=== PATIENT | male | born 1950 | race Caucasian/White ===

== ENCOUNTER 2022-10-14 09:56 | Outpatient (CLI) | payer OTHER | END 2022-10-14 10:27 | disposition home or self-care (01) | LOC: RAD 09:56 | PROVIDERS: ATTEND Internal Medicine | DX: I11.9 Hypertensive heart disease without heart failure (principal) ==

== ENCOUNTER → 2022-12-17 11:38 | Outpatient (CLI) | payer OTHER ==
[2022-12-17 13:20] LABS: CREATININE SERUM 0.73 mg/dL (0.70-1.30)
== END | disposition home or self-care (01) ==
LOC: LAB 11:38
DX: R10.30 Lower abdominal pain, unspecified (principal)

== ENCOUNTER 2022-12-23 07:15 | Outpatient (CLI) | payer OTHER | END 2022-12-23 07:28 | disposition home or self-care (01) | LOC: TOM 07:15 | PROVIDERS: ATTEND Internal Medicine | DX: R10.30 Lower abdominal pain, unspecified (principal); K57.92 Diverticulitis of intestine, part unspecified, without perforation or abscess without bleeding; J44.9 Chronic obstructive pulmonary disease, unspecified; R09.02 Hypoxemia; R91.8 Other nonspecific abnormal finding of lung field ==

== ENCOUNTER → 2023-01-28 | Day surgery (SDC) | payer OTHER | END | disposition home or self-care (01) | LOC: ADM 01-22 09:15 → AMB-ENDOS 09:02 | PROVIDERS: ATTEND Internal Medicine Gastroenterology | DX: K94.23 Gastrostomy malfunction (principal); R13.14 Dysphagia, pharyngoesophageal phase; Z20.822 Contact with and (suspected) exposure to COVID-19 ==

== ENCOUNTER 2023-08-10 12:34 | Inpatient (IN) | payer OTHER ==
[~2023-08-10] VITALS: Ht 167.6 cm; Wt 56.7 kg
--- NOTE | 2023-08-10 12:56 | NUR ---
SE RECIBE PTE EN AMBULANCIA JUNTO A FAMILIAR DONDE PARAMEDICOS REFIEREN QUE PACIENTE PRESENTA FIEBRE, DIFICULTAD RESPIARATORIA POR NEUMONIA Y ABDOMINAL PAIN. TEMPERATURA AL MOMENTO DE TRIAGE 102.7 DONDE SE LE ALLYSSA TYLENOL POR EL TUBO DE GASTROSTOMIA QUE PRESENTA EL MISMO Y BOLSA CON HIELO. SE COLOCA CANULA NASAL A [address] ORDEN DE [address] FARIAS LA CUAL TOLERA.
[2023-08-10] MEDS ORDERED: 0.9 % SODIUM CHLORIDE 1,000 ML IV STA (13:13)
[2023-08-10] MEDS ORDERED: LEVALBUTEROL HCL 1.25 MG/3 ML SOLUTION IH STA (13:14)
[2023-08-10] MEDS ORDERED: IPRATROPIUM/ALBUTEROL SULFATE 3 ML AMPUL.NEB IH STA (13:17)
[2023-08-10] MEDS ORDERED: ACETAMINOPHEN 500 MG GEL..CAP PO STA (13:19)
--- NOTE | 2023-08-10 13:47 | NUR ---
SE EDUCA A PTE OSBRE TX A RECIBIR EN EL AREA EL MISMO REFIERE ENTENDER. SE CANALIZA PTE Y SE COLOCA IVFLUID. SE LLAMA A TERAPIA FALU COLOCA LAS MISMAS Y REALIZA LAB. SE EDUCA SOBRE LANTIGUA Y EL MISMO REFIERE NO DESEARLO. SE REALIZAN MUESTRAS Y SE ENVIAN DE FORMA INMEDIATA. SE REALIZA EKG Y SE PRESENTA A DR FARIAS SE TRACE PTE EN ESPERA DE ESTUDIO.
[2023-08-10 13:53] LABS: PH,URINE 6.5 (5.0-8.0); URINE APPEARANCE Clear; URINE BILIRRUBIN Negative (NEGATIVE); URINE BLOOD Negative; URINE COLOR Yellow; URINE GLUCOSE Negative (NEGATIVE); URINE LEUKOCYTE Negative; URINE NITRATE Negative; URINE PROTEIN Trace (NEGATIVE)
[2023-08-10 13:54] LABS: URINE BACTERIA 20.1 uL (0.0-1933); URINE EPITHELIAL CELLS 2.6 uL (0.0-38.8); URINE RBC 15.4 uL (0.0-20.8); URINE WBC 2.6 uL (0.0-23.2)
[2023-08-10 13:55] LABS: HEMATOCRIT 34.7 % (39.0-48.0); HEMOGLOBIN 12.1 g/dL (13-16.00); MEAN CELL VOLUME 85.9 fL (80.0-100.00); MEAN CORPUSCULAR HEMOGLOBIN 30.1 pg (27.00-32.0); RED BLOOD COUNT 4.03 M/uL (4.00-6.00); RED CELL DISTRIBUTION WIDTH 13.4 % (11.5-14.5)
[2023-08-10 13:56] LABS: PLATELET COUNT 90 K/uL (150-450)
[2023-08-10 14:00] LABS: ABG pCO2 30.1 mmHg (35-45)
[2023-08-10 14:01] LABS: ABG PO2 75.8 mmHg (80-100); BASE EXCESS 0.9 mmol/l; SaO2 96.3 %; Tco2 23.9 mmol/l
[2023-08-10 14:02] LABS: allen test SATISFACTORY; o2 32 %; puncture site RADIAL LEFT
[2023-08-10 14:40] LABS: ALBUMIN 2.8 gm/dL (3.4-5.0); BILIRUBIN TOTAL 0.53 mg/dL (0.3-1.2); BILIRUBIN,CONJUGATED 0.18 mg/dL (0.0-0.2); BILIRUBIN,UNCONJUGATED 0.35 mg/dL (0.0-0.6); CALCIUM 8.1 mg/dL (8.5-10.1); CREATININE SERUM 0.71 mg/dL (0.70-1.30); GFR 109.68; POTASSIUM 4.07 mEq/L (3.5-5.1); TOTAL PROTEIN 5.8 gm/dL (6.4-8.2)
--- NOTE | 2023-08-10 15:26 | NUR ---
SE RCIBE PACIENTE ALERTA Y ORIENTADO X3 EN COMPANIA DE FAMILIAR EL CUAL AL MOMENTO SE ENCUENTRA EN MARIAH EN POSICION SEMI SENTADA. AL MOMENTO PTE SE ENCUENTRA CON CANULA NASAL Y CON IVF BAJANDO POR ANGIO #20 EN BRAZO BRIDGETTE. AL MOMENTO PENDIENTE RESULTADOS DE CT Y CONSULTA.
[2023-08-10] MEDS ORDERED: LEVALBUTEROL HCL 1.25 MG/3 ML SOLUTION IH SCH (18:19)
[2023-08-10] MEDS ORDERED: IPRATROPIUM BROMIDE 0.5 MG/2.5 ML AMPUL.NEB IH SCH (18:19)
[2023-08-10] MEDS ORDERED: DEXAMETHASONE SODIUM PHOSPHATE 4 MG/ML VIAL IV SCH (18:21)
[2023-08-10] MEDS ORDERED: AZITHROMYCIN 500 MG in DEXTROSE 5 % IN WATER 250 ML IV SCH (18:22)
[2023-08-10] MEDS ORDERED: CEFTRIAXONE SODIUM 2,000 MG in 0.9 % SODIUM CHLORIDE 100 ML IV SCH (18:22)
[2023-08-10] MEDS ORDERED: 0.9 % SODIUM CHLORIDE 1,000 ML IV SCH (18:30)
[2023-08-10] MEDS ORDERED: ACETAMINOPHEN 500 MG GEL..CAP PO PRN (18:30)
[2023-08-10] MEDS ORDERED: ONDANSETRON HCL 4 MG in 0.9 % SODIUM CHLORIDE 50 ML IV PRN (18:30)
[2023-08-10 21:06] LABS: FERRITIN 393.8 NG/ML (26-388)
[2023-08-10 21:10] LABS: C-REACTIVE PROTEIN 8.11 MG/DL (0.00-0.29)
[2023-08-10 21:31] LABS: D DIMER 8.4 MG/L; INR 1.3; PARTIAL THROMBOPLASTIN TIME 32.3 SECONDS (22.0-34.0); PROTHROMBIN TIME 13.4 SECONDS (9.0-11.5)
[2023-08-11] MEDS ORDERED: AMLODIPINE BESYLATE 5 MG TABLET PO SCH (09:00)
[2023-08-11] MEDS ORDERED: FAMOTIDINE/PF 20 MG in 0.9 % SODIUM CHLORIDE 8 ML IV PUSH SCH (09:00)
[2023-08-11] MEDS ORDERED: ENOXAPARIN SODIUM 40 MG/0.4 ML SYRINGE SUBCUTANEO SCH (09:00)
[2023-08-11] MEDS ORDERED: REMDESIVIR 100 MG VIAL IV NR ×2 (09:30→10:15)
[2023-08-11] MEDS ORDERED: PREGABALIN 100 MG CAPSULE PO SCH (11:44)
[2023-08-11] MEDS ORDERED: CLOPIDOGREL BISULFATE 75 MG TABLET PO SCH (11:44)
[2023-08-11] MEDS ORDERED: FAMOTIDINE20 MG (15:38)
[2023-08-11] MEDS ORDERED: PREGABALIN200 MG (15:38)
[2023-08-11] MEDS ORDERED: ALENDRONATE SOD35 MG (15:38)
[2023-08-11] MEDS ORDERED: FLUTICASONE-SA1 EAC3 (15:38)
[2023-08-11] MEDS ORDERED: TRAZODONE HCL50 MG (15:38)
[2023-08-11] MEDS ORDERED: FLONASE16 GM (15:38)
[2023-08-11] MEDS ORDERED: CLOPIDOGREL BIS75 MG (15:38)
[2023-08-11] MEDS ORDERED: TRAZODONE HCL 50 MG TABLET PO SCH (21:00)
[2023-08-12 07:50] LABS: HEMATOCRIT 35.6 % (39.0-48.0); HEMOGLOBIN 12.4 g/dL (13-16.00); MEAN CELL VOLUME 87.4 fL (80.0-100.00); MEAN CORPUSCULAR HEMOGLOBIN 30.5 pg (27.00-32.0); MEAN CORPUSCULAR HGB CONC 34.9 g/dl (32.0-36.0); RED BLOOD COUNT 4.07 M/uL (4.00-6.00); RED CELL DISTRIBUTION WIDTH 13.7 % (11.5-14.5)
[2023-08-12 07:55] LABS: PLATELET COUNT 98 K/uL (150-450)
[2023-08-12 08:06] LABS: ALBUMIN 2.4 gm/dL (3.4-5.0); BILIRUBIN TOTAL 0.5 mg/dL (0.3-1.2); CALCIUM 8.1 mg/dL (8.5-10.1); CREATININE SERUM 0.63 mg/dL (0.70-1.30); GFR 125.9; GLOBULINA 3.5 G/DL (2.4-3.5); POTASSIUM 4.46 mEq/L (3.5-5.1); TOTAL PROTEIN 5.9 gm/dL (6.4-8.2)
[2023-08-12 08:15] LABS: MYCOPLASMA PNEUMONIAE IGM NON REACTIVE (NO REACTIVE)
[2023-08-12 08:18] LABS: FERRITIN 377.6 NG/ML (26-388)
[2023-08-12 08:53] LABS: C-REACTIVE PROTEIN 17.5 MG/DL (0.00-0.29)
[2023-08-12 08:54] LABS: PHOSPHOROUS 1.5 mg/dL (2.5-4.9)
[2023-08-12] MEDS ORDERED: CEFEPIME HCL 2,000 MG VIAL IV SCH (12:59)
[2023-08-12] MEDS ORDERED: POTASSIUM PHOS,M-BASIC-D-BASIC 18 MM in 0.9 % SODIUM CHLORIDE 250 ML IV ONE (17:00)
[2023-08-12] MEDS ORDERED: DEXTROSE 50 % IN WATER 0.5 G/ML VIAL IV PRN (17:00)
[2023-08-12] MEDS ORDERED: INSULIN LISPRO 1,000 UNIT/10 ML UNITS SUBCUTANEO PRN (17:00)
[2023-08-12] MEDS ORDERED: REMDESIVIR 100 MG VIAL IV SCH (17:00)
[2023-08-13 05:13] LABS: HEMATOCRIT 34.5 % (39.0-48.0); HEMOGLOBIN 11.8 g/dL (13-16.00); MEAN CELL VOLUME 87.8 fL (80.0-100.00); MEAN CORPUSCULAR HEMOGLOBIN 30.1 pg (27.00-32.0); MEAN CORPUSCULAR HGB CONC 34.3 g/dl (32.0-36.0); RED BLOOD COUNT 3.93 M/uL (4.00-6.00); RED CELL DISTRIBUTION WIDTH 13.4 % (11.5-14.5)
[2023-08-13 05:15] LABS: PLATELET COUNT 102 K/uL (150-450)
[2023-08-13 05:35] LABS: ALBUMIN 2.2 gm/dL (3.4-5.0); BILIRUBIN TOTAL 0.62 mg/dL (0.3-1.2); CALCIUM 7.8 mg/dL (8.5-10.1); CREATININE SERUM 0.48 mg/dL (0.70-1.30); GFR 172.31; GLOBULINA 3.5 G/DL (2.4-3.5); MAGNESIUM 2.1 mg/dL (1.8-2.4); PHOSPHOROUS 2.2 mg/dL (2.5-4.9); POTASSIUM 4.29 mEq/L (3.5-5.1); TOTAL PROTEIN 5.7 gm/dL (6.4-8.2)
[2023-08-14 07:32] LABS: HEMATOCRIT 33.8 % (39.0-48.0); HEMOGLOBIN 11.7 g/dL (13-16.00); MEAN CELL VOLUME 87.2 fL (80.0-100.00); MEAN CORPUSCULAR HEMOGLOBIN 30.3 pg (27.00-32.0); MEAN CORPUSCULAR HGB CONC 34.8 g/dl (32.0-36.0); RED BLOOD COUNT 3.87 M/uL (4.00-6.00); RED CELL DISTRIBUTION WIDTH 13.7 % (11.5-14.5)
[2023-08-14 08:20] LABS: ERYTHROCYTE SEDIMENTATION RATE 53 mm/hr
[2023-08-14 08:33] LABS: FERRITIN 409.4 NG/ML (26-388)
[2023-08-14 08:49] LABS: PLATELET COUNT 111 K/uL (150-450)
[2023-08-14 10:12] LABS: ABG PH 7.509 (7.35-7.45); ABG PO2 47.9 mmHg (80-100); ABG pCO2 29.5 mmHg (35-45)
[2023-08-14 10:13] LABS: BICARBONATE 22.9 mmol/l (23-25); SaO2 87.8 %; Tco2 23.8 mmol/l
[2023-08-14 10:14] LABS: allen test SATISFACTORY; o2 21 %; puncture site RADIAL RIGHT
[2023-08-14] MEDS ORDERED: ENALAPRILAT DIHYDRATE 1.25 MG/ML VIAL IV PRN (21:45)
[2023-08-15] MEDS ORDERED: LEVALBUTEROL HCL 1.25 MG/3 ML SOLUTION IH SCH (01:34)
[2023-08-15] MEDS ORDERED: IPRATROPIUM BROMIDE 0.5 MG/2.5 ML AMPUL.NEB IH SCH (01:34)
[2023-08-15 14:17] LABS: ABG PH 7.481 (7.35-7.45); ABG pCO2 31.2 mmHg (35-45)
[2023-08-15 14:18] LABS: ABG PO2 51.3 mmHg (80-100); BASE EXCESS 0.2 mmol/l; BICARBONATE 22.7 mmol/l (23-25); SaO2 88.9 %; Tco2 23.7 mmol/l
[2023-08-15 14:19] LABS: o2 21 %
[2023-08-15 14:20] LABS: allen test SATISFACTORY; puncture site RADIAL RIGHT
[2023-08-16 06:47] LABS: ABG PH 7.497 (7.35-7.45); ABG PO2 56.4 mmHg (80-100); ABG pCO2 32.5 mmHg (35-45); BICARBONATE 24.6 mmol/l (23-25); SaO2 91.8 %; Tco2 25.6 mmol/l; allen test SATISFACTORY; o2 21 %; puncture site RADIAL LEFT
[2023-08-16 08:54] LABS: FERRITIN 248.8 NG/ML (26-388)
[2023-08-16] MEDS ORDERED: MEROPENEM 500 MG/VIAL VIAL IV SCH (14:00)
[2023-08-17 06:39] LABS: ABG PH 7.486 (7.35-7.45); ABG pCO2 33.8 mmHg (35-45)
[2023-08-17 06:40] LABS: ABG PO2 83.4 mmHg (80-100); BASE EXCESS 2.1 mmol/l; SaO2 97.1 %; allen test SATISFACTORY; o2 32 %; puncture site RADIAL RIGHT
[2023-08-19 09:23] LABS: HEMATOCRIT 36.7 % (39.0-48.0); HEMOGLOBIN 12.8 g/dL (13-16.00); MEAN CELL VOLUME 87.3 fL (80.0-100.00); MEAN CORPUSCULAR HEMOGLOBIN 30.4 pg (27.00-32.0); MEAN CORPUSCULAR HGB CONC 34.8 g/dl (32.0-36.0); PLATELET COUNT 181 K/uL (150-450); RED CELL DISTRIBUTION WIDTH 13.9 % (11.5-14.5)
[2023-08-19 09:44] LABS: ALBUMIN 2.2 gm/dL (3.4-5.0); BILIRUBIN TOTAL 0.86 mg/dL (0.3-1.2); CALCIUM 7.8 mg/dL (8.5-10.1); CREATININE SERUM 0.47 mg/dL (0.70-1.30); GFR 176.05; GLOBULINA 3.3 G/DL (2.4-3.5); MAGNESIUM 2.3 mg/dL (1.8-2.4); PHOSPHOROUS 2.9 mg/dL (2.5-4.9); POTASSIUM 4.68 mEq/L (3.5-5.1); TOTAL PROTEIN 5.5 gm/dL (6.4-8.2)
[2023-08-19 09:53] LABS: C-REACTIVE PROTEIN 3.55 MG/DL (0.00-0.29)
[2023-08-19 11:26] LABS: ABG PH 7.468 (7.35-7.45); ABG PO2 73.2 mmHg (80-100); BASE EXCESS 2.7 mmol/l; BICARBONATE 26.2 mmol/l (23-25); SaO2 95.6 %; Tco2 27.3 mmol/l; allen test SATISFACTORY; o2 32 %; puncture site RADIAL LEFT
[2023-08-19] MEDS ORDERED: DEXTROSE 50 % IN WATER 0.5 G/ML DISP.SYRIN IV PRN (11:45)
[2023-08-23 10:15] LABS: ABG PH 7.479 (7.35-7.45); ABG PO2 81.6 mmHg (80-100); ABG pCO2 36.6 mmHg (35-45); BASE EXCESS 3.2 mmol/l; BICARBONATE 26.6 mmol/l (23-25); SaO2 96.9 %; Tco2 27.7 mmol/l; allen test SATISFACTORY; o2 21 %; puncture site RADIAL RIGHT
[2023-08-23] MEDS ORDERED: IPRATROPIU0.2 MG/1 M IH (10:40)
[2023-08-23] MEDS ORDERED: XOPENEX CO1.25 MG/0. IH (10:40)
[2023-08-23] MEDS ORDERED: CLOPIDOGREL BIS75 MG PO (10:40)
[2023-08-23] MEDS ORDERED: LYRICA100 MG PO (10:41)
[2023-08-23] MEDS ORDERED: AMLODIPINE BESYL5 MG PO (10:41)
[2023-08-23] MEDS ORDERED: TRAZODONE HCL50 MG PO (10:41)
[2023-08-23] MEDS ORDERED: FLUTICASONE-SA1 EAC3 PO (10:42)
[2023-08-23] MEDS ORDERED: FLONASE16 GM NASAL (10:43)
[2023-08-23] MEDS ORDERED: FAMOTIDINE20 MG PO (10:44)
[2023-08-23] MEDS ORDERED: ALENDRONATE SOD35 MG PO (10:46)
[2023-08-23] MEDS ORDERED: MEDROL2 MG PO (10:48)
== END 2023-08-23 17:43 | disposition home or self-care (01) | DRG 871 ==
LOC: ER 12:34 → SEC-K 19:01 → MEDJ 08-13 08:22
PROVIDERS: General Practice; Internal Medicine; Internal Medicine Infectious Disease; ADMIT Internal Medicine; ATTEND Internal Medicine
PROC: BW24ZZZ Computerized Tomography (CT Scan) of Chest and Abdomen (ICD-10-PCS; 2023-08-10)
PROC: XW033E5 Introduction of Remdesivir Anti-infective into Peripheral Vein, Percutaneous Approach, New Technology Group 5 (ICD-10-PCS; principal; 2023-08-11)
PROC: 4A12X4Z Monitoring of Cardiac Electrical Activity, External Approach (ICD-10-PCS; 2023-08-13)
DX: A41.9 Sepsis, unspecified organism (principal); J12.82 Pneumonia due to coronavirus disease 2019; U07.1 COVID-19; E87.1 Hypo-osmolality and hyponatremia; D72.819 Decreased white blood cell count, unspecified; R09.02 Hypoxemia; D64.9 Anemia, unspecified; D69.6 Thrombocytopenia, unspecified; B96.5 Pseudomonas (aeruginosa) (mallei) (pseudomallei) as the cause of diseases classified elsewhere; B96.20 Unspecified Escherichia coli [E. coli] as the cause of diseases classified elsewhere; E09.9 Drug or chemical induced diabetes mellitus without complications

== ENCOUNTER 2023-12-15 14:53 | Inpatient (IN) | payer OTHER ==
[~2023-12-15] VITALS: Ht 167.6 cm; Wt 54.4 kg
[~2023-12-15 14:53] MED LIST: ALENDRONATE SOD35 MG; ALENDRONATE SOD35 MG PO; AMLODIPINE BESYL5 MG PO; CLOPIDOGREL BIS75 MG; CLOPIDOGREL BIS75 MG PO; FAMOTIDINE20 MG; FAMOTIDINE20 MG PO; FLONASE16 GM; FLONASE16 GM NASAL; FLUTICASONE-SA1 EAC3; FLUTICASONE-SA1 EAC3 PO; IPRATROPIU0.2 MG/1 M IH; LYRICA100 MG PO; MEDROL2 MG PO; PREGABALIN200 MG; TRAZODONE HCL50 MG; TRAZODONE HCL50 MG PO; XOPENEX CO1.25 MG/0. IH
[2023-12-15] MEDS ORDERED: AMLODIPINE (15:21)
[2023-12-15] MEDS ORDERED: ACID CONTROLLER20 MG PO (15:22)
[2023-12-15] MEDS ORDERED: ALENDRONATE SOD35 MG PO (15:22)
[2023-12-15] MEDS ORDERED: PLAVIX75 MG PO (15:22)
[2023-12-15] MEDS ORDERED: PROTONIX40 M1 PO (15:23)
--- NOTE | 2023-12-15 15:25 | NUR ---
PTE ALERTA Y ORIENTADO X3 EN COMPANIA DE HIJO. EL MISMO REFIERE QUE TIENE EDU INFECION EN EL PIE DERECHO QUE A EMPEORADO. REFIER QUE ESTA BAJO TRATAMIENTO, FRANSICO NO MEJORA. REFIERE QUE SE SHAHANA Y RECIR TRAUMA EN DAREN. SE MIDEN A/V Y SE UBICA.
[2023-12-15] MEDS ORDERED: RINGERS SOLUTION,LACTATED 1,000 ML IV STA (16:35)
--- NOTE | 2023-12-15 17:05 | NUR ---
SE ORIENTA PTE SOBRE TX MEDICO EL CUAL REFIERE ENTENDER.SE LE EXTRAEN MUESTRAS BAJO MEDIDAS ASEPTICAS,SE CANALIZA Y SE COLOCAN FLUIDOS DE MANTENIMIENTO,SE NOTIFICAN ESTUDIOS PENDIENTES.
[2023-12-15 17:33] LABS: URINE APPEARANCE Clear; URINE BILIRRUBIN Negative (NEGATIVE); URINE BLOOD Negative; URINE COLOR Yellow; URINE GLUCOSE Negative (NEGATIVE); URINE KETONE Negative (NEGATIVE); URINE LEUKOCYTE Negative; URINE NITRATE Negative; URINE PROTEIN Negative (NEGATIVE); URINE UROBILINOGEN 0.2 E.U./dl
[2023-12-15 17:36] LABS: URINE BACTERIA 40.3 uL (0.0-1933); URINE EPITHELIAL CELLS 1.9 uL (0.0-38.8); URINE RBC 2.7 uL (0.0-20.8)
[2023-12-15 17:41] LABS: URINE WBC 1.2 uL (0.0-23.2)
[2023-12-15 17:46] LABS: HEMATOCRIT 40.7 % (39.0-48.0); HEMOGLOBIN 13.6 g/dL (13-16.00); MEAN CORPUSCULAR HEMOGLOBIN 29.5 pg (27.00-32.0); MEAN CORPUSCULAR HGB CONC 33.5 g/dl (32.0-36.0); PLATELET COUNT 164 K/uL (150-450); RED BLOOD COUNT 4.62 M/uL (4.00-6.00)
[2023-12-15 17:50] LABS: ERYTHROCYTE SEDIMENTATION RATE 9 mm/hr
[2023-12-15 17:59] LABS: INR 1.13; PARTIAL THROMBOPLASTIN TIME 26.8 SECONDS (22.0-34.0); PROTHROMBIN TIME 12.2 SECONDS (9.0-11.5)
[2023-12-15 19:13] LABS: ALBUMIN 2.6 gm/dL (3.4-5.0); BILIRUBIN TOTAL 0.57 mg/dL (0.3-1.2); CALCIUM 8.2 mg/dL (8.5-10.1); CREATININE SERUM 0.86 mg/dL (0.70-1.30); GFR 87.66; POTASSIUM 4.72 mEq/L (3.5-5.1); TOTAL PROTEIN 5.6 gm/dL (6.4-8.2)
[2023-12-15] MEDS ORDERED: 0.9 % SODIUM CHLORIDE 1,000 ML IV SCH (21:15)
[2023-12-15] MEDS ORDERED: PIPERACILLIN/TAZOBACTAM SODIUM 3.375 GM in DEXTROSE 5 % IN WATER 100 ML IV SCH (21:17)
[2023-12-15] MEDS ORDERED: FLUCONAZOLE IN NACL,ISO-OSM 200 MG/100 ML PIGGYBAG IV ONE (21:30)
[2023-12-15] MEDS ORDERED: ACETAMINOPHEN 500 MG GEL..CAP PO PRN (21:30)
[2023-12-16 00:01] VITALS: BP 134/70; O2SAT 100
[2023-12-16 08:00] VITALS: BP 120/60; O2SAT 100
[2023-12-16] MEDS ORDERED: FAMOTIDINE/PF 20 MG in 0.9 % SODIUM CHLORIDE 8 ML IV PUSH SCH (09:00)
[2023-12-16] MEDS ORDERED: ENOXAPARIN SODIUM 40 MG/0.4 ML SYRINGE SUBCUTANEO SCH (09:00)
[2023-12-16] MEDS ORDERED: AMLODIPINE BESYLATE 5 MG TABLET PO SCH (09:00)
[2023-12-16 16:00] VITALS: BP 167/79; O2SAT 100
[2023-12-16] MEDS ORDERED: EMOLLIENTS 6 OZ BOTTLE TOP SCH (17:00)
[2023-12-16] MEDS ORDERED: HYDROCORTISONE TOP SCH (17:00)
[2023-12-16] MEDS ORDERED: NYSTATIN TOP SCH (17:00)
[2023-12-16] MEDS ORDERED: TRAZODONE HCL 50 MG TABLET PO SCH (21:00)
[2023-12-17 00:50] VITALS: BP 125/60; O2SAT 100
[2023-12-17 08:00] VITALS: BP 110/60; O2SAT 97
[2023-12-17 16:00] VITALS: BP 121/61; O2SAT 100
[2023-12-18 00:52] VITALS: BP 99/55; O2SAT 98
[2023-12-18 09:47] VITALS: BP 102/54; O2SAT 99
[2023-12-18 16:20] VITALS: BP 139/62; O2SAT 100
[2023-12-19 01:04] VITALS: BP 115/60; O2SAT 98
[2023-12-19 08:02] LABS: INR 1.15; PROTHROMBIN TIME 12.4 SECONDS (9.0-11.5)
[2023-12-19 09:59] VITALS: BP 104/58; O2SAT 100
[2023-12-19 16:00] VITALS: BP 114/57; O2SAT 100
[2023-12-19 23:49] VITALS: BP 119/78; O2SAT 97
[2023-12-20 08:18] VITALS: BP 114/69; O2SAT 97
[2023-12-20 16:14] VITALS: BP 110/72; O2SAT 98
[2023-12-20 17:08] LABS: HEMATOCRIT 38.4 % (39.0-48.0); HEMOGLOBIN 13.4 g/dL (13-16.00); MEAN CELL VOLUME 87.7 fL (80.0-100.00); MEAN CORPUSCULAR HEMOGLOBIN 30.6 pg (27.00-32.0); MEAN CORPUSCULAR HGB CONC 34.8 g/dl (32.0-36.0); PLATELET COUNT 148 K/uL (150-450); RED BLOOD COUNT 4.37 M/uL (4.00-6.00); RED CELL DISTRIBUTION WIDTH 13.8 % (11.5-14.5)
[2023-12-20 17:35] LABS: ALBUMIN 2.7 gm/dL (3.4-5.0); BILIRUBIN TOTAL 0.52 mg/dL (0.3-1.2); CALCIUM 7.8 mg/dL (8.5-10.1); CREATININE SERUM 0.58 mg/dL (0.70-1.30); GFR 138.11; GLOBULINA 2.9 G/DL (2.4-3.5); POTASSIUM 4.27 mEq/L (3.5-5.1); TOTAL PROTEIN 5.6 gm/dL (6.4-8.2)
[2023-12-21] VITALS: BP 125/71; O2SAT 99
[2023-12-21 08:15] VITALS: BP 120/66; O2SAT 98
[2023-12-21 18:16] VITALS: BP 122/72; O2SAT 99
[2023-12-22] VITALS: BP 99/60; O2SAT 100
[2023-12-22 08:40] VITALS: BP 110/53; O2SAT 99
[2023-12-22 16:00] VITALS: BP 116/72; O2SAT 97
[2023-12-23] VITALS: BP 98/57; O2SAT 97
[2023-12-23 08:26] VITALS: BP 100/62; O2SAT 100
== END 2023-12-23 12:35 | disposition home or self-care (01) | DRG 300 ==
LOC: SURH → ER 14:55 → SURH 21:43
PROVIDERS: ADMIT Internal Medicine; ATTEND Internal Medicine
PROC: BW28ZZZ Computerized Tomography (CT Scan) of Head (ICD-10-PCS; principal; 2023-12-15)
PROC: B54DZZZ Ultrasonography of Bilateral Lower Extremity Veins (ICD-10-PCS; 2023-12-15)
PROC: B44HZZZ Ultrasonography of Bilateral Lower Extremity Arteries (ICD-10-PCS; 2023-12-16)
PROC: 0JBP3ZZ Excision of Left Lower Leg Subcutaneous Tissue and Fascia, Percutaneous Approach (ICD-10-PCS; 2023-12-22)
DX: I83.218 Varicose veins of right lower extremity with both ulcer of other part of lower extremity and inflammation (principal); L03.115 Cellulitis of right lower limb; L03.116 Cellulitis of left lower limb; L97.818 Non-pressure chronic ulcer of other part of right lower leg with other specified severity; I83.228 Varicose veins of left lower extremity with both ulcer of other part of lower extremity and inflammation

== ENCOUNTER 2024-03-20 11:35 | Outpatient (CLI) | payer OTHER ==
[~2024-03-20 11:35] MED LIST changes: +ACID CONTROLLER20 MG PO; +AMLODIPINE; +PLAVIX75 MG PO; +PROTONIX40 M1 PO
== END 2024-03-20 11:47 | disposition home or self-care (01) ==
LOC: TOM 11:35
PROVIDERS: ATTEND Internal Medicine
DX: J44.9 Chronic obstructive pulmonary disease, unspecified (principal); R09.02 Hypoxemia; R91.8 Other nonspecific abnormal finding of lung field

== ENCOUNTER 2024-03-28 15:11 | Emergency (ER) | payer OTHER ==
[~2024-03-28] VITALS: Ht 167.6 cm; Wt 55.3 kg
[2024-03-28 15:51] VITALS: BP 151/71; O2SAT 96
== END 2024-03-28 19:00 | disposition home or self-care (01) ==
LOC: ER 15:13
DX: L98.9 Disorder of the skin and subcutaneous tissue, unspecified (principal); R21 Rash and other nonspecific skin eruption; I10 Essential (primary) hypertension

== ENCOUNTER 2025-01-19 14:42 | Outpatient (CLI) | payer OTHER | END 2025-01-19 14:52 | disposition home or self-care (01) | LOC: RAD 14:42 | DX: R05.1 Acute cough (principal); R50.9 Fever, unspecified ==

== ENCOUNTER 2025-01-25 14:58 | Inpatient (IN) | payer OTHER ==
[~2025-01-25] VITALS: Ht 162.6 cm; Wt 72.6 kg
--- NOTE | 2025-01-25 15:05 | NUR ---
SE RECIBE PTE ALERTA Y ORIENTADO X3 EN AMBULANCIA. REFIERE CONGESTION NASAL, TOS SECA Y FIEBRE HACE 10 GOLD. AL MOMENTO DEL TRIAGE NO PRESENTA FIEBRE. SE UBICA EN MARIAH
[2025-01-25] MEDS ORDERED: DEXAMETHASONE SODIUM PHOSPHATE 4 MG/ML VIAL IM STA (15:16)
[2025-01-25] MEDS ORDERED: GUAIFENESIN 200 MG/10 ML BLIST.PACK PO STA (15:16)
[2025-01-25] MEDS ORDERED: ACETAMINOPHEN 500 MG GEL..CAP PO STA (15:17)
[2025-01-25] MEDS ORDERED: CEFTRIAXONE SODIUM 1,000 MG VIAL IM STA (15:17)
[2025-01-25] MEDS ORDERED: ACETAMINOPHEN 500 MG GEL..CAP PO ONE (15:21)
[2025-01-25] MEDS ORDERED: DEXAMETHASONE SODIUM PHOSPHATE 4 MG/ML VIAL ONE (15:21)
[2025-01-25] MEDS ORDERED: CEFTRIAXONE SODIUM 1,000 MG VIAL ONE (15:21)
[2025-01-25] MEDS ORDERED: GUAIFENESIN 200 MG/10 ML BLIST.PACK PO ONE (15:21)
[2025-01-25] MEDS ORDERED: ALBUTEROL SULFATE 3 ML/2.5 MG AMPUL.NEB IH SCH (15:30)
[2025-01-25 15:44] LABS: BASO % 0.3 % (0.1-1.2); EOS # 0.09 (0.04-0.54); EOS % 1.2 % (0.7-7.0); LYMPH # 0.81 (1.18-3.74); LYMPH % 10.8 % (19.3-53.1); MEAN PLATELET VOLUME 10.40 fl (9.4-12.4); MONO # 0.50 (0.24-0.82); MONO % 6.7 % (4.7-12.5); NEUT # 6.03 (1.56-6.13); NEUT % 80.3 % (34.0-71.1); RED CELL DISTRIBUTION WIDTH 13.9 % (11.6-14.4)
[2025-01-25] MEDS ORDERED: DIPHENHYDRAMINE HCL 50 MG/ML VIAL 1ML IV STA (16:02)
[2025-01-25] MEDS ORDERED: METHYLPREDNISOLONE SOD SUCC 125 MG VIAL IV STA (16:03)
[2025-01-25] MEDS ORDERED: METHYLPREDNISOLONE SOD SUCC 125 MG VIAL ONE (16:13)
[2025-01-25] MEDS ORDERED: DIPHENHYDRAMINE HCL 50 MG/ML VIAL 1ML ONE (16:13)
[2025-01-25 16:24] LABS: BUN CREA RATIO 27.0 (7.0-25.0); CREATININE SERUM 0.67 mg/dL (0.70-1.30); GFR 116.6; OSMOLALITY SERUM 274.0 MOSM/KG (275-295)
--- NOTE | 2025-01-25 16:28 | NUR ---
SE ORIENTA PTE SOBRE TX A SEGUIR, EL MISMO REFIERE ENTENDER. SE DARIUSZ MUESTRA DE LAB, SE CANALIZA Y SE ADMINISTRA MED JOSE LUIS ORDEN MEDICA
[2025-01-25 16:29] LABS: GLUCOSE FASTING 204.0 mg/dL (65-100)
[2025-01-25] MEDS ORDERED: DIPHENHYDRAMINE HCL 50 MG/ML VIAL 1ML IV ONE (16:30)
[2025-01-25] MEDS ORDERED: METHYLPREDNISOLONE SOD SUCC 125 MG VIAL IV ONE (16:30)
[2025-01-25 17:13] LABS: COVID-19 AG NEGATIVE (NEGATIVE)
[2025-01-25] MEDS ORDERED: ALBUTEROL SULFATE 3 ML/2.5 MG AMPUL.NEB IH ONE (18:03)
[2025-01-25] MEDS ORDERED: levoFLOXacin IN DEXTROSE 5 % 150 ML IV SCH (20:42)
[2025-01-25] MEDS ORDERED: 0.9 % SODIUM CHLORIDE 1,000 ML IV SCH (20:45)
[2025-01-25] MEDS ORDERED: ACETAMINOPHEN 500 MG GEL..CAP PO PRN (20:45)
[2025-01-25] MEDS ORDERED: ONDANSETRON HCL 4 MG in 0.9 % SODIUM CHLORIDE 50 ML IV PRN (20:45)
[2025-01-25] MEDS ORDERED: IPRATROPIUM BROMIDE 0.5 MG/2.5 ML AMPUL.NEB IH SCH (21:00)
[2025-01-25] MEDS ORDERED: LEVALBUTEROL HCL 1.25 MG/3 ML SOLUTION IH SCH (21:00)
[2025-01-25] MEDS ORDERED: GUAIFEN/DEXTROMETHORPHAN/PE 10 ML BLIST.PACK PO SCH (21:00)
[2025-01-25] MEDS ORDERED: BUDESONIDE 0.5 MG/2 ML AMPUL.NEB IH SCH (21:00)
[2025-01-25] MEDS ORDERED: GUAIFEN/DEXTROMETHORPHAN/PE 10 ML BLIST.PACK PO ONE (21:44)
[2025-01-25] MEDS ORDERED: levoFLOXacin IN DEXTROSE 5 % 5 MG/ML PIGGYBAG IV ONE (21:44)
[2025-01-25 22:37] LABS: INR 1.27
[2025-01-26] VITALS: BP 140/86; O2SAT 96
[2025-01-26] MEDS ORDERED: FAMOTIDINE/PF 20 MG/2 ML VIAL ONE (05:30)
[2025-01-26 08:09] VITALS: BP 157/88; O2SAT 100
[2025-01-26] MEDS ORDERED: FAMOTIDINE/PF 20 MG in 0.9 % SODIUM CHLORIDE 8 ML IV PUSH SCH (09:00)
[2025-01-26] MEDS ORDERED: AMLODIPINE BESYLATE 5 MG TABLET PO SCH (09:00)
[2025-01-26] MEDS ORDERED: ENOXAPARIN SODIUM 40 MG/0.4 ML SYRINGE SUBCUTANEO SCH (09:00)
[2025-01-26] MEDS ORDERED: LEVALBUTEROL HCL 1.25 MG/3 ML SOLUTION IH ONE ×2 (10:04→17:16)
[2025-01-26] MEDS ORDERED: IPRATROPIUM BROMIDE 0.5 MG/2.5 ML AMPUL.NEB IH ONE ×2 (10:05→17:16)
[2025-01-26 15:19] VITALS: BP 147/83; O2SAT 100
[2025-01-26 17:41] VITALS: O2SAT 98
[2025-01-26] MEDS ORDERED: PIPERACILLIN/TAZOBACTAM SODIUM 3.375 GM in 0.9 % SODIUM CHLORIDE 100 ML IV SCH (18:00)
[2025-01-26 19:30] VITALS: BP 130/61; O2SAT 95
[2025-01-27] VITALS: O2SAT 95
[2025-01-27 03:34] VITALS: BP 124/70; O2SAT 95
[2025-01-27 07:58] LABS: BASO % 0.1 % (0.1-1.2); EOS # 0.01 (0.04-0.54); EOS % 0.1 % (0.7-7.0); LYMPH # 0.82 (1.18-3.74); LYMPH % 9.9 % (19.3-53.1); MEAN PLATELET VOLUME 10.80 fl (9.4-12.4); MONO # 0.64 (0.24-0.82); MONO % 7.7 % (4.7-12.5); NEUT # 6.77 (1.56-6.13); NEUT % 81.6 % (34.0-71.1); RED CELL DISTRIBUTION WIDTH 13.6 % (11.6-14.4)
[2025-01-27 08:44] LABS: LDH 154.0 U/L (87-241)
[2025-01-27 08:47] LABS: ALT/SGPT 29.0 U/L (12-78); AST/SGOT 38.0 U/L (15-37); BILIRUBIN TOTAL 0.8 mg/dL (0.3-1.2); BUN CREA RATIO 25.0 (7.0-25.0); CREATININE SERUM 0.65 mg/dL (0.70-1.30); GFR 120.75; GLOBULINA 3.9 G/DL (2.4-3.5); GLUCOSE FASTING 120.0 mg/dL (65-100); OSMOLALITY SERUM 278.0 MOSM/KG (275-295)
[2025-01-27] MEDS ORDERED: ORPHENADRINE CITRATE 30 MG/ML AMPUL IV SCH (09:00)
[2025-01-27] MEDS ORDERED: KETOROLAC TROMETHAMINE 30 MG VIAL IV PRN (09:00)
[2025-01-27 11:02] VITALS: BP 142/77; O2SAT 99
[2025-01-27 19:37] VITALS: BP 141/73
[2025-01-27 21:00] VITALS: O2SAT 99
[2025-01-28] VITALS (8 sets, daily range): BP systolic 121–134; BP diastolic 65–76; O2SAT 88–100
[2025-01-28] MEDS ORDERED: PIPERACILLIN/TAZOBACTAM SODIUM 3.375 GM VIAL IV ONE (16:05)
[2025-01-29] VITALS (8 sets, daily range): BP systolic 123–133; BP diastolic 64–75; O2SAT 94–99
[2025-01-29 06:11] LABS: BASO % 0.2 % (0.1-1.2); EOS # 0.13 (0.04-0.54); EOS % 2.6 % (0.7-7.0); LYMPH # 0.74 (1.18-3.74); LYMPH % 14.6 % (19.3-53.1); MEAN PLATELET VOLUME 10.70 fl (9.4-12.4); MONO # 0.48 (0.24-0.82); MONO % 9.4 % (4.7-12.5); NEUT # 3.69 (1.56-6.13); NEUT % 72.6 % (34.0-71.1); RED CELL DISTRIBUTION WIDTH 14.3 % (11.6-14.4)
[2025-01-29 07:22] LABS: ALT/SGPT 31.0 U/L (12-78); AST/SGOT 41.0 U/L (15-37); BILIRUBIN TOTAL 1.05 mg/dL (0.3-1.2); BUN CREA RATIO 19.0 (7.0-25.0); CREATININE SERUM 0.64 mg/dL (0.70-1.30); GFR 122.93; GLOBULINA 4.0 G/DL (2.4-3.5); GLUCOSE FASTING 80.0 mg/dL (65-100); OSMOLALITY SERUM 273.0 MOSM/KG (275-295)
[2025-01-30] VITALS (8 sets, daily range): BP systolic 115–128; BP diastolic 64–71; O2SAT 90–100
[2025-01-30] MEDS ORDERED: IPRATROPIUM/ALBUTEROL SULFATE 3 ML AMPUL.NEB IH SCH (09:00)
[2025-01-30] MEDS ORDERED: METHYLPREDNISOLONE SOD SUCC 40 MG VIAL IV SCH (09:00)
[2025-01-31] VITALS (7 sets, daily range): BP systolic 113–147; BP diastolic 67–81; O2SAT 96–100
[2025-02-01 00:04] VITALS: O2SAT 98
[2025-02-01 01:30] VITALS: BP 125/71; O2SAT 98
[2025-02-01 03:26] VITALS: O2SAT 90
[2025-02-01 07:34] LABS: BASO % 0.0 % (0.1-1.2); EOS # 0.00 (0.04-0.54); EOS % 0.0 % (0.7-7.0); LYMPH # 0.35 (1.18-3.74); LYMPH % 5.1 % (19.3-53.1); MEAN PLATELET VOLUME 10.80 fl (9.4-12.4); MONO # 0.20 (0.24-0.82); MONO % 2.9 % (4.7-12.5); NEUT # 6.21 (1.56-6.13); NEUT % 91.0 % (34.0-71.1); RED CELL DISTRIBUTION WIDTH 14.2 % (11.6-14.4)
[2025-02-01 08:20] LABS: ALT/SGPT 44.0 U/L (12-78); AST/SGOT 29.0 U/L (15-37); BILIRUBIN TOTAL 0.64 mg/dL (0.3-1.2); BUN CREA RATIO 23.0 (7.0-25.0); CREATININE SERUM 0.6 mg/dL (0.70-1.30); GFR 132.44; GLOBULINA 4.1 G/DL (2.4-3.5)
[2025-02-01 09:18] LABS: GLUCOSE FASTING 204.0 mg/dL (65-100); OSMOLALITY SERUM 278.0 MOSM/KG (275-295)
[2025-02-01 09:55] VITALS: O2SAT 99
[2025-02-01 10:06] VITALS: BP 160/74; O2SAT 100
[2025-02-01] MEDS ORDERED: AVIDOXY100 MG PO (10:42)
[2025-02-01] MEDS ORDERED: AMOX-CLAV 875-1 EAC1 PO (10:42)
[2025-02-01] MEDS ORDERED: AMLODIPINE BESYL5 MG PO (10:43)
== END 2025-02-01 13:30 | disposition home or self-care (01) | DRG 195 ==
LOC: ER 14:58 → SEC-K 20:56 → MEDJ 20:56 → SEC-K 01-26 00:43 → MEDJ 01-26 16:42
PROVIDERS: General Practice; Internal Medicine; Internal Medicine Infectious Disease; ADMIT Internal Medicine; ATTEND Internal Medicine
PROC: BB24YZZ Computerized Tomography (CT Scan) of Bilateral Lungs using Other Contrast (ICD-10-PCS; principal; 2025-01-25)
PROC: 3E0F7GC Introduction of Other Therapeutic Substance into Respiratory Tract, Via Natural or Artificial Opening (ICD-10-PCS; 2025-01-26)
PROC: 4A12X4Z Monitoring of Cardiac Electrical Activity, External Approach (ICD-10-PCS; 2025-01-26)
DX: J18.1 Lobar pneumonia, unspecified organism (principal); I69.391 Dysphagia following cerebral infarction; R13.19 Other dysphagia; I10 Essential (primary) hypertension